=== PATIENT | male | born 1970 | race Caucasian/White ===

== ENCOUNTER 2017-01-06 13:57 | Emergency (ER) | payer MEDICAID, OTHER ==
[2017-01-06 14:15] VITALS: RESP 18
--- NOTE | 2017-01-06 14:39 | EDPHY ---
H & P Stated Complaint: left temporal lobe pain with exertion HPI/ROS: Chief Complaint: Intermittent headache HPI: 46-year-old male with a history of benign tumor resection in 1996 is presenting with intermittent left-sided temporal headache for the last week. Patient states he only gets the headache when he is exercising or he does get it mildly when he walks up stairs. No vision or hearing changes. No nausea or vomiting. On his unless his head. He states that feels pretty superficial. His scalp is not tender to the touch. No rashes. The pain only last while he is working out and then resolves when he is done. He is not taking medications for this. He is currently without complaint. He does have a history of seizure disorder secondary to his tumor. He takes lamotrigine. He has not had a seizure in 2 years. ROS: 10 point Review of Systems is negative except as noted in the HPI. PMH: Benign brain tumor status post resection 1996, seizure disorder Social History: No smoking, occasional alcohol, occasional marijuana Family History: non-contributory Physical Exam: Gen: Awake, Alert, No Distress HEENT: Scalp is nontender, there is no rashes Nose: no rhinorrhea Eyes: PERRLA, EOMI Mouth: Moist mucosa Neck: Supple, no JVD Chest: nontender, lungs clear to auscultation Heart: S1, S2 normal, no murmur Abd: Soft, non-tender, no guarding Back: no CVA tenderness, no midline tenderness Ext: no edema, non-tender Skin: no rash Neuro: CN II-XII intact, Sensation grossly intact, Strength 5/5 in bilateral upper and lower extremities - Personal History Current Tetanus/Diphtheria Vaccine: Yes Current Tetanus Diphtheria and Acellular Pertussis (TDAP): Yes - Medical/Surgical History Hx Asthma: No Hx Chronic Respiratory Disease: No Hx Diabetes: No Hx Cardiac Disease: No Hx Renal Disease: No Hx Cirrhosis: No Hx Alcoholism: No Hx HIV/AIDS: No Hx Splenectomy or Spleen Trauma: No Other PMH: brain tumor around 1996. Surgically removed. Takes Lomotrigine for siezures. - Social History Smoking Status: Never smoked Constitutional: Initial Vital Signs Temperature (C) 36.7 C 01/06/17 14:09 Heart Rate 69 01/06/17 14:09 Respiratory Rate 18 01/06/17 14:09 Blood Pressure 117/87 H 10/12/17 14:09 O2 Sat (%) 94 01/06/17 14:09 O2 Delivery Mode Room Air Allergies/Adverse Reactions: No Known Allergies Allergy (Unverified 01/06/17 14:16) Home Medications: Medication Instructions Recorded Lamotrigine 01/06/17 Medical Decision Making ED Course/Re-evaluation: 46-year-old male with intermittent headaches associated with exerting himself. I was in the left side of the head. Will obtain a CT scan to rule out any evidence of hydrocephalus, mass or blood. Symptoms could also be associated with a peripheral nerve process. He is currently pain-free. If CT scan is negative plan will be to discharge and have him follow up with his physician at the [place] with Neurology referral. Departure - Departure Disposition: Home, Routine, Self-Care Clinical Impression: Headache Condition: Good Instructions: Acute Headache (ED) Additional Instructions: The follow up with your primary care physician at the [place] and for referral to Neurology. Make sure you are very well hydrated prior to exercise or working out. Return to the emergency depart for increasing headache, nausea, vomiting, vision or hearing changes, numbness, weakness, or any other concerns. Referrals: NONE *PRIMARY CARE P,. [Primary Care Provider] - As per Instructions
[2017-01-06 15:14] VITALS: BP 122/82; PULSE 75; TEMP 98.4; O2SAT 95
== END 2017-01-06 15:18 | disposition home or self-care (01) ==
LOC: CED 13:57
DX: R51 Headache (principal)
CPT/HCPCS: 70450-PO

== ENCOUNTER → 2017-02-02 | Outpatient (CLI) | payer MEDICAID ==
[~2017-02-02] MED LIST: IOPAMIDOL (ISOVUE 370) 100 ML BTL IV ONE
== END ==
LOC: CIMAGING 09:27
PROVIDERS: ATTEND Psychiatry & Neurology Neurology
DX: G44.84 Primary exertional headache (principal); Z86.011 Personal history of benign neoplasm of the brain
CPT/HCPCS: 70496-PO; 70498-PO; Q9967

== ENCOUNTER 2017-09-24 20:56 | Emergency (ER) | payer MEDICAID ==
--- NOTE | 2017-09-24 21:01 | EDPHY ---
H & P Time Seen by Provider: 09/24/17 21:01 HPI/ROS: HPI CHIEF COMPLAINT: Abdominal pain HISTORY OF PRESENT ILLNESS: 47-year-old male, otherwise healthy presents emergency room with left-sided abdominal pain. For the past 48 hr he has had left-sided abdominal pain. Describes sharp stabbing main is left lower quadrant left upper quadrant. Denies any vomiting or diarrhea. Denies nausea. Denies chest pain or shortness of breath denies pleuritic pain. No fever. Denies any testicular pain or urinary symptoms. He describes the pain is rather constant over the past 48 hr left-sided of his abdomen does not radiate. Past Medical History: Seizure Past Surgical History: Brain tumor removal Social History: Denies drugs alcohol tobacco. Family History: Noncontributory ROS REVIEW OF SYSTEMS: A comprehensive 10 point review of systems is otherwise negative aside from elements mentioned in the history of present illness. Exam Constitutional triage nursing summary reviewed, vital signs reviewed, awake/ alert. Eyes normal conjunctivae and sclera, EOMI, PERRLA. HENT normal inspection, atraumatic, moist mucus membranes, no epistaxis, neck supple/ no meningismus, no raccoon eyes. Respiratory clear to auscultation bilaterally, normal breath sounds, no respiratory distress, no wheezing. Cardiovascular rate normal, regular rhythm, no murmur, no edema, distal pulses normal. Gastrointestinal mild tender palpation left lower quadrant, and left upper quadrant no rebound, no guarding, normal bowel sounds, no distension, no pulsatile mass. Genitourinary no CVA tenderness. Musculoskeletal no midline vertebral tenderness, full range of motion, no calf swelling, no tenderness of extremities, no meningismus, good pulses, neurovascularly intact. Skin pink, warm, & dry, no rash, skin atraumatic. Neurologic awake, alert and oriented x 3, AAOx3, moves all 4 extremities equally, motor intact, sensory intact, CN II-XII intact, normal cerebellar, normal vision, normal speech. Psychiatric normal mood/affect. Heme/Lymph/Immune no lymphadenopathy. Differential Diagnosis: Differential diagnosis includes but is not limited to and in no particular order: Bowel obstruction, appendicitis, gallbladder disease, diverticulitis, colitis, enteritis, perforated viscus, gastritis, GERD , esophagitis, urinary tract infection, pyelonephritis, kidney stones Medical Decision Making: Plan for this patient IV establishment IV fluid Re-evaluation: CT scan abdomen pelvis with IV contrast: No acute inflammatory process visualized. Specifically no diverticulitis or colitis no splenic infarct and no kidney disease on CT. See full dictation by Dr. Javier. 2226: Patient re-evaluated this time abdomen is soft nontender. He is not vomiting he denies any chest pain or shortness of breath. His pain is completely resolved. He received IV fluids 0.5 mg IV Dilaudid and Zofran he is feeling much better. I did reexamine his abdomen is soft nontender. I discussed his test results including blood work and CT scan is CT scan abdomen pelvis with IV contrast does not show any acute inflammatory process. Mild constipation. Blood work is relatively normal. I explained our allowed to go home however over the weekend if he develops worsening abdominal pain fever vomiting she needs return emergency room. He understands this. Stool softeners. Return precautions. Source: Patient - Medical/Surgical History Hx Asthma: No Hx Chronic Respiratory Disease: No Hx Diabetes: No Hx Cardiac Disease: No Hx Renal Disease: No Hx Cirrhosis: No Hx Alcoholism: No Hx HIV/AIDS: No Hx Splenectomy or Spleen Trauma: No Other PMH: brain tumor around 1996. Surgically removed. Takes Lomotrigine for siezures. - Social History Smoking Status: Never smoked Constitutional: Initial Vital Signs Temperature (C) 36.6 C 09/24/17 21:01 Heart Rate 52 L 09/24/17 21:01 Respiratory Rate 20 09/24/17 21:01 Blood Pressure 159/67 H 09/24/17 21:01 O2 Sat (%) 95 09/24/17 21:01 Allergies/Adverse Reactions: No Known Allergies Allergy (Unverified 01/06/17 14:16) Home Medications: Medication Instructions Recorded Lamotrigine 01/06/17 Polyethylene Glycol 3350 [Miralax 17 gm PO DAILY #4 pkt 09/24/17 17 gm (*)] Medical Decision Making - Diagnostics Imaging Results: Imaging Impressions Abdomen CT 09/24/17 21:07 Impression: Mild constipation. Probable couple small renal cortical cysts in both kidneys which are too small to characterize. Otherwise unremarkable. Results called and discussed with Nikko Tomlin MD at 09/24/2017 22:06. - Data Points Laboratory Results: 06/30/18 06/30/18 06/30/18 21:57 21:33 21:30 POC Hgb 16.3 gm/dL gm/dL (13.7-17.5) POC Hct 48 % % (40-51) POC Sodium 143 mEq/L mEq/L 140 mEq/L mEq/L (135-145) (135-145) POC Potassium 3.5 mEq/L mEq/L 3.7 mEq/L mEq/L (3.3-5.0) (3.3-5.0) POC Chloride 101.0 mEq/L mEq/L 100 mEq/L mEq/L (97-110) (97-110) POC Total CO2 28 mEq/L mEq/L (22-31) POC BUN 11 mg/dL mg/dL 13 mg/dL mg/dL (7-23) (7-23) POC Creatinine 1.1 mg/dL mg/dL 1.0 mg/dL mg/dL (0.7-1.3) (0.7-1.3) POC Glucose 115 mg/dL H mg/dL 118 mg/dL H mg/dL (70-100) (70-100) POC Lactic Acid Aleksandr POC Calcium 9.6 mg/dL mg/dL (8.5-10.4) POC Total Bilirubin 1.0 mg/dL mg/dL (0.1-1.4) POC AST 26 IU/L IU/L (17-59) POC ALT 21 IU/L IU/L (21-72) POC Alk Phosphatase 43 IU/L IU/L (38-126) POC Troponin I 0.02 ng/mL ng/mL (0.00-0.08) POC Total Protein 6.8 g/dL g/dL (6.3-8.2) POC Albumin 4.2 g/dL g/dL (3.5-5.0) Lipase 09/24/17 09/24/17 21:23 21:15 POC Hgb POC Hct POC Sodium POC Potassium POC Chloride POC Total CO2 POC BUN POC Creatinine POC Glucose POC Lactic Acid Aleksandr Pending POC Calcium POC Total Bilirubin POC AST POC ALT POC Alk Phosphatase POC Troponin I POC Total Protein POC Albumin Lipase Pending Medications Given: Discontinued Medications Hydromorphone HCl (Dilaudid) 0.5 mg IVP EDNOW ONE Stop: 09/24/17 21:08 Last Admin: 09/24/17 21:24 Dose: 0.5 mg Sodium Chloride (Ns) 1,000 mls @ 0 mls/hr IV ONCE ONE PRN Reason: Wide Open Stop: 09/24/17 21:08 Last Admin: 09/24/17 21:26 Dose: 1,000 mls Ondansetron HCl (Zofran) 4 mg IVP EDNOW ONE Stop: 09/24/17 21:08 Last Admin: 09/24/17 21:24 Dose: 4 mg Point of Care Test Results: CBC CBC Collection Date 09/24/17 CBC Collection Time 21:15 WBC 6.7 RBC 5.53 HGB 16.5 HCT 48.9 PLT 216 Neut # 4.7 Neut 70.7 LYMPH # 1.7 LYMPH 25.0 Other WBC # 0.3 Other WBC 4.3 MCV 88.4 Chemistry 09/24/17 09/24/17 09/24/17 21:57 21:33 21:30 POC Sodium 143 mEq/L mEq/L 140 mEq/L mEq/L (135-145) (135-145) POC Potassium 3.5 mEq/L mEq/L 3.7 mEq/L mEq/L (3.3-5.0) (3.3-5.0) POC Chloride 101.0 mEq/L mEq/L 100 mEq/L mEq/L (97-110) (97-110) POC Total CO2 28 mEq/L mEq/L (22-31) POC BUN 11 mg/dL mg/dL 13 mg/dL mg/dL (7-23) (7-23) POC Creatinine 1.1 mg/dL mg/dL 1.0 mg/dL mg/dL (0.7-1.3) (0.7-1.3) POC Glucose 115 mg/dL H mg/dL 118 mg/dL H mg/dL (70-100) (70-100) POC Calcium 9.6 mg/dL mg/dL (8.5-10.4) POC Total Bilirubin 1.0 mg/dL mg/dL (0.1-1.4) POC AST 26 IU/L IU/L (17-59) POC ALT 21 IU/L IU/L (21-72) POC Alk Phosphatase 43 IU/L IU/L (38-126) POC Troponin I 0.02 ng/mL ng/mL (0.00-0.08) POC Total Protein 6.8 g/dL g/dL (6.3-8.2) POC Albumin 4.2 g/dL g/dL (3.5-5.0) ISTAT H&H 09/24/17 21:30 POC Hgb 16.3 gm/dL gm/dL (13.7-17.5) POC Hct 48 % % (40-51) Urine Dip Collection Date 09/24/17 Collection Time 22:17 Specific [place] (1.002-1.030) 1.015 PH (5.0-7.5) 7.0 Leukocytes (Negative) Negative Nitrites (Negative) Negative Protein (Negative) Negative Glucose (Negative) Negative Ketones (Negative) Negative Urobilnogen (0.2-1.0 EU) 0.2 Bilirubin (Negative) Negative Blood (Negative) Negative Departure - Departure Disposition: Home, Routine, Self-Care Clinical Impression: Abdominal pain Qualifiers: Abdominal location: left lower quadrant Qualified Code(s): R10.32 - Left lower quadrant pain Condition: Good Instructions: Acute Abdominal Pain (ED) Additional Instructions: 1. [place] diet over the next 24-48 hours. 2. Return emergency room if you have worsening abdominal pain fever vomiting 3. Stool softeners as prescribed. Referrals: Marylu Alfaro MD [Primary Care Provider] - As per Instructions Prescriptions: Polyethylene Glycol 3350 [Miralax 17 gm (*)] 17 gm PO DAILY #4 pkt
[2017-09-24] MEDS ORDERED: ONDANSETRON 4 MG/2 ML VIAL IVP ONE (21:07)
[2017-09-24] MEDS ORDERED: NS 1,000 ML IV ONE (21:07)
[2017-09-24] MEDS ORDERED: HYDROmorphONE/DILAUDID 2 MG/ML INJ IVP ONE (21:07)
[2017-09-24] MEDS ORDERED: IOPAMIDOL (ISOVUE 370) 100 ML BTL IV ONE (21:40)
--- NOTE | 2017-09-24 22:38 | CPEKG ---
Heart Rate: 48 RR Interval: 1250 P-R Interval: 152 QRSD Interval: 80 QT Interval: 456 QTC Interval: 408 P [place]: 58 QRS [place]: 28 T Wave [place]: 29 EKG Severity - OTHERWISE NORMAL ECG - EKG Impression: SINUS BRADYCARDIA Electronically Signed By: Nikko Tomlin 24-Sep-2017 22:43:51
[2017-09-24 23:03] VITALS: BP 124/66
== END 2017-09-24 23:01 | disposition home or self-care (01) ==
LOC: CED 20:56
DX: R10.32 Left lower quadrant pain (principal)
CPT/HCPCS: 74177-PO; 80053-PO; 82435-PO; 82565-PO; 82947-PO; 83605-PO; 84132-PO; 84295-PO; 84484-PO; 84520-PO; 85014-PO; 96374; J1170; J2405; Q9967